=== PATIENT | female | born 1960 | race Caucasian/White ===

== ENCOUNTER 2020-04-27 17:33 | Inpatient (IN) | payer MEDICARE, MEDICAID ==
[~2020-04-27] VITALS: Ht 154.9 cm; Wt 77.8 kg
[2020-04-27 18:39] LABS: BASO % 0.2 % (0.0-2.0); EOS # 0.1 (0.0-0.7); GRAN # 7.2 (1.4-6.5); GRAN % 72.2 % (42.2-75.2); HEMATOCRIT 42.5 % (37.0-47.0); LYMPH # 1.8 (1.2-3.4); LYMPH % 18.1 % (20.0-51.0); MEAN CELL VOLUME 94 fl (80.0-100.0); MEAN CORPUSCULAR HEMOGLOBIN 31 pg (27.0-31.0); MEAN CORPUSCULAR HGB CONC 33 g/dl (33.0-37.0); MEAN PLATELET VOLUME 9.4 fl (7.4-10.4); MONO # 0.8 (0.1-0.6); MONO % 8.2 % (1.7-9.3); PLATELET COUNT 347 K/mm3 (130-400); RED BLOOD COUNT 4.54 M/mm3 (4.10-5.30); REDCELL DISTRIBUTION WIDTH-CV 13.3 % (11.5-14.5)
[2020-04-27 18:44] LABS: INR 0.9 (0.8-3.0); PROTHROMBIN TIME 9.8 SECONDS (9.7-12.8)
[2020-04-27 18:50] LABS: ALANINE AMINOTRANSFERASE 34 U/L (4-34); ALBUMIN 4.3 gm/dL (3.5-5.0); ALKALINE PHOSPHATASE 95 U/L (50-136); ANION GAP 10 mmol/L (7-16); AST,SGOT 211 U/L (15-37); BILIRUBIN,TOTAL 0.5 mg/dL (0.0-1.0); BLOOD UREA NITROGEN 17 mg/dL (7-17); CALCIUM 9.7 mg/dL (8.4-10.2); CARBON DIOXIDE 25 mmol/L (22-30); CHLORIDE 104 mmol/L (98-107); GLUCOSE 134 mg/dL (74-106); LIPASE 108 U/L (23-300); POTASSIUM 3.6 mmol/L (3.4-5.0); SODIUM 138 mmol/L (137-145); TOTAL PROTEIN 7.9 gm/dL (6.4-8.2)
[2020-04-27 18:58] LABS: TRICYCLIC ANTIDEPRESS URINE NEGATIVE
[2020-04-27 19:02] LABS: TROPONIN-I < 0.012 ng/mL (0.000-0.035)
[2020-04-27] MEDS ORDERED: AMBIEN 10MG10 MG PO (22:09)
[2020-04-27] MEDS ORDERED: RANEXA1000 MG PO (22:09)
[2020-04-27] MEDS ORDERED: COREG 6.256.25 MG/TA PO (22:10)
[2020-04-27] MEDS ORDERED: ZANAFLEX CAPSULE4 MG PO (22:10)
[2020-04-27] MEDS ORDERED: PRAVACHOL 40MG40 MG PO (22:10)
[2020-04-27] MEDS ORDERED: CYMBALTA 60MG60 MG PO (22:10)
[2020-04-27] MEDS ORDERED: NEURONTIN300 MG/CAP PO (22:11)
[2020-04-27] MEDS ORDERED: NITROSTAT0.4 MG/TAB SL (22:11)
[2020-04-27] MEDS ORDERED: ANTIVERT 25MG25 MG PO (22:11)
[2020-04-27] MEDS ORDERED: SALONPAS1 EACH TP (22:12)
[2020-04-27] MEDS ORDERED: ASPIRIN 81M81 MG/TA2 PO (22:12)
[2020-04-28] VITALS (20 sets, daily range): BP systolic 94–149; BP diastolic 55–94; PULSE 68–98; TEMP 97.5–98.1
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
--- NOTE | 2020-04-28 09:45 | NUR ---
PT TAKEN DOWN FOR HEART CATH PROCEDURE, PT LABS DRAWN FROM NEW PICC LINE ON R ARM. CONSENT SIGNED ON CHART
--- NOTE | 2020-04-28 10:09 | NUR ---
SEE MERGE DOCUMENTATION FOR MEDICATION ADMINISTRATION AND INTRA/POST PROCEDURE SEDATION ASSESSMENTS.
--- NOTE | 2020-04-28 10:14 | NUR ---
LAB CALLED REPORTING HEMOGLOBIN DROPPING FROM 14 YESTERDAY TO 9.7 TODAY.
--- NOTE | 2020-04-28 11:09 | NUR ---
Time Signal Wirer attempted to meet with the patient. She was out of the room. Will attempt at a later time.
--- NOTE | 2020-04-28 11:20 | NUR ---
PT RETURNED TO FLOOR. PT PUT ON 5.5L OXYGEN, PT HOOKED UP TO VITALS CART. PT REPORTING EXTREME PAIN /. MORPHINE GIVEN.
--- NOTE | 2020-04-28 11:28 | NUR ---
PT COMPLAINING OF LOTS OF PAIN, MORPHING ADMINISTERED. NO OTHER NEEDS AT THIS TIME.
[2020-04-28 12:22] LABS: BASO % 0.3 % (0.0-2.0); EOS # 0.2 (0.0-0.7); EOS % 3.1 % (0-4.0); GRAN # 3.1 (1.4-6.5); GRAN % 53.2 % (42.2-75.2); LYMPH % 34.7 % (20.0-51.0); MEAN CELL VOLUME 94 fl (80.0-100.0); MEAN CORPUSCULAR HGB CONC 33 g/dl (33.0-37.0); MEAN PLATELET VOLUME 9.7 fl (7.4-10.4); MONO # 0.5 (0.1-0.6); MONO % 8.2 % (1.7-9.3); PLATELET COUNT 267 K/mm3 (130-400); RED BLOOD COUNT 3.59 M/mm3 (4.10-5.30); REDCELL DISTRIBUTION WIDTH-CV 13.2 % (11.5-14.5)
[2020-04-28 12:30] LABS: HEMOGLOBIN 11.2 g/dl (12.5-16.0); MEAN CORPUSCULAR HEMOGLOBIN 31 pg (27.0-31.0)
[2020-04-28 12:31] LABS: HEMATOCRIT 33.9 % (37.0-47.0)
[2020-04-28 12:32] LABS: ANION GAP 3 mmol/L (7-16); BLOOD UREA NITROGEN 13 mg/dL (7-17); CALCIUM 8.1 mg/dL (8.4-10.2); CARBON DIOXIDE 28 mmol/L (22-30); CHLORIDE 102 mmol/L (98-107); CHOLESTEROL 183 mg/dL (120-200); CHOLESTEROL RISK RATIO 4.3; GLUCOSE 130 mg/dL (74-106); HDL CHOLESTEROL 42 mg/dL; LDL CHOLESTEROL 114 mg/dL; POTASSIUM 4.1 mmol/L (3.4-5.0); SODIUM 132 mmol/L (137-145); TRIGLYCERIDE 135 mg/dL
[2020-04-28 12:44] LABS: TROPONIN-I < 0.012 ng/mL (0.000-0.035)
--- NOTE | 2020-04-28 12:52 | NUR ---
PT TAKEN DOWN FOR CT VIA BED.
--- NOTE | 2020-04-28 13:14 | NUR ---
PT RETURNED FROM MRI
--- NOTE | 2020-04-28 16:36 | NUR ---
Manager Image met with the patient to complete initial intake. The patient lives in [place] with her boyfriend Sudeep Jaimes. The patient recently moved her from [place]. The patient denies DME use and does receive some assistance from Sudeep for ADLs. The patient does not have a PCP and was agreeable to setting up with [facility]. The patient to receive medications from [facility]. The patient does not have advanced directives in the EMR but was interested in DPOA-HC form. Form provided. The patient would like to apply for Medicaid. The patient will return home at discharge. NELSON contacted Keila Enciso with Finance and she will assist the patient, 04/29 with the application. NELSON informed the patient. NELSON contacted [facility] to set up appointment. Her appointment will be , 05/05 at 11:00 but arrival at 10:30. Will continue to monitor.
--- NOTE | 2020-04-28 17:22 | NUR ---
PT MEDS GIVEN, PT FEMORAL SITE CDI, NO DRAINAGE, PT 6 HOURS OF LAYING FLAT IS NOW OVER. PT HELPED TO BEDSIDE COMMODE. URINE DARK YELLOW. PT COMPLAINING OF HIP AND BACK PAIN WITH AMBULATION. PT PLEASANT. PT IV FLUIDS RUNNING. NO OTHER NEEDS AT THIS TIME.
--- NOTE | 2020-04-28 20:00 | NUR ---
Patient assessed at this time. Alert and oriented x 4, and able to make needs known. Reports pain to head, back, and right hip. Given PRN Tizanidine. Double lumen PICC to RUE. Dressing to area is CDI. Site is without redness, warmth, swelling, and pain. Denies having SOB and dyspnea. Reports occasional cough. LS CTA in upper lobes, diminished in lower lobes. Respirations even and unlabored. HRR. Telemetry in place: sinus. Capillary refill less than 3 seconds. Non-tenting skin turgor. BSAx4. Abdomen soft and non-tender. No edema. Heart cath site to right femoral is CDI. Denies pain and discomfort to site. Resting in bed with call light within reach. High fall risk precautions initiated due to history of syncopal episodes prior to hospitalization. Patient voiced understanding.
--- NOTE | 2020-04-28 22:40 | NUR ---
Patient continued to complain of level 10 headache after receiving PRN Percocet around 2100. Reported that only morphine helped her yesterday. Call placed to [place]. New order for one time Morphine and Benadryl. Given to patient at this time. Voices no further questions, needs, or concerns at this time.
--- NOTE | 2020-04-28 23:51 | NUR ---
Patient resting in bed with eyes closed at this time. No further complaints of pain or discomfort after receiving PRN Morphine.
[2020-04-29] VITALS (527 sets, daily range): BP systolic 64–134; BP diastolic 30–95; PULSE 63–81; TEMP 97.6–98.9; O2SAT 85–100
[2020-04-29 06:38] LABS: BASO % 0.2 % (0.0-2.0); EOS # 0.2 (0.0-0.7); EOS % 3.4 % (0-4.0); GRAN % 53.7 % (42.2-75.2); HEMOGLOBIN 10.1 g/dl (12.5-16.0); LYMPH # 1.8 (1.2-3.4); MEAN CELL VOLUME 97 fl (80.0-100.0); MEAN CORPUSCULAR HEMOGLOBIN 32 pg (27.0-31.0); MEAN CORPUSCULAR HGB CONC 33 g/dl (33.0-37.0); MEAN PLATELET VOLUME 9.9 fl (7.4-10.4); MONO # 0.5 (0.1-0.6); MONO % 9.5 % (1.7-9.3); PLATELET COUNT 260 K/mm3 (130-400); REDCELL DISTRIBUTION WIDTH-CV 13.2 % (11.5-14.5)
--- NOTE | 2020-04-29 06:42 | NUR ---
Patient given PRN Percocet around 0300, then another one around 0515. Continues to have headache at this time. Resting in bed with eyes closed at this time. Call light within reach.
[2020-04-29 06:44] LABS: CREATININE, serum 0.6 (0.52-1.25); POTASSIUM 4.5 mmol/L (3.4-5.0)
--- NOTE | 2020-04-29 11:41 | NUR ---
PT HAD LOW BP. RETAKEN MANUALLY TO GET A SYSTOLIC OF 76. POTHURU AWARE, ORDERED FLUID BOLUS, TROPONIN AND STAT EKG. RESPIRATORY CALLED FOR STAT EKG. EKG PERFORMED AT 1155. BOLUS INFUSING, BP BEING TAKEN Q5MIN. PT BP 64/39 AT 1153. BP 74/37 AT 1158. FLUIDS CONTINUING TO INFUSE. PT REPORTING DIZZINESS AND STATES "I FEEL LIKE IM GONNA PASS OUT. THIS HAPPENS TO ME EVERY TIME IM ABOUT TO DISCHARGE, LAST TIME I WENT TO THE HOSPITAL I HAD TO GO TO THE ICU." PT ALSO REPORTS HEADACHE. PERCOCET HELD DUE TO LOW BP. BP AT 1202 71/38.
--- NOTE | 2020-04-29 12:15 | NUR ---
PT is recommending a walker for the patient. The patient was agreeable to sending the order to [facility]. However, she wanted to apple picking supervisor the walker herself. SW faxed the order and informed Chanelle with [facility] that the patient would apple picking supervisor the walker. Will continue to monitor.
--- NOTE | 2020-04-29 12:24 | NUR ---
PHYSICIAN AWARE OF LOW BP. ORDERED 1000ML BOLUS IN ADDITION TO 500ML , XRAY, EKG. CALLED XRAY. PT APPEARS DROWSY. ALERT WHEN TALKING. ORIENTED X4.
--- NOTE | 2020-04-29 12:34 | NUR ---
TRANSFERRING TO ICU.
[2020-04-29 12:46] LABS: ANION GAP 1 mmol/L (7-16); BLOOD UREA NITROGEN 12 mg/dL (7-17); CALCIUM 6.5 mg/dL (8.4-10.2); CARBON DIOXIDE 26 mmol/L (22-30); CHLORIDE 109 mmol/L (98-107); GLUCOSE 124 mg/dL (74-106); POTASSIUM 3.7 mmol/L (3.4-5.0); SODIUM 136 mmol/L (137-145)
[2020-04-29 12:59] LABS: TROPONIN-I < 0.012 ng/mL (0.000-0.035)
--- NOTE | 2020-04-29 13:05 | NUR ---
Patient arrives to ICU 3 via bed and is transferred to ICU bed and monitors. Patient is A&Ox3, assessment and vitals as charted. Care assumed at this time.
--- NOTE | 2020-04-29 13:25 | NUR ---
Dr. Matson called and notified that levophed gtt will be initiated as per prior orders. Request made for MIVF and granted. Orders as entered CPOE.
[2020-04-29 15:59] LABS: HEMOGLOBIN 10.3 g/dl (12.5-16.0); MEAN CELL VOLUME 96 fl (80.0-100.0); MEAN CORPUSCULAR HEMOGLOBIN 31 pg (27.0-31.0); MEAN CORPUSCULAR HGB CONC 33 g/dl (33.0-37.0); MEAN PLATELET VOLUME 9.5 fl (7.4-10.4); PLATELET COUNT 273 K/mm3 (130-400); RED BLOOD COUNT 3.29 M/mm3 (4.10-5.30); REDCELL DISTRIBUTION WIDTH-CV 13.1 % (11.5-14.5)
[2020-04-29 16:27] LABS: HEMATOCRIT 31.6 % (37.0-47.0)
--- NOTE | 2020-04-29 16:53 | NUR ---
Mobility Developer assisted patient in completing DPOA-HC documents. NELSON and NELSON Barnett provided witness signature. SW provided original and copies to patient then placed copy on patient's chart.
--- NOTE | 2020-04-29 22:45 | NUR ---
Hospitalist at bedside to discuss patient's ongoing concerns regarding her headache. Hospitalist to review chart.
[2020-04-30] VITALS (401 sets, daily range): BP systolic 115–159; BP diastolic 72–97; PULSE 70–76; TEMP 98–98.3; O2SAT 56–100
[2020-04-30 07:20] LABS: BASO % 0.2 % (0.0-2.0); EOS # 0.2 (0.0-0.7); EOS % 3.9 % (0-4.0); GRAN # 2.8 (1.4-6.5); GRAN % 56.2 % (42.2-75.2); LYMPH # 1.6 (1.2-3.4); LYMPH % 31.7 % (20.0-51.0); MEAN CELL VOLUME 95 fl (80.0-100.0); MEAN CORPUSCULAR HEMOGLOBIN 31 pg (27.0-31.0); MEAN CORPUSCULAR HGB CONC 33 g/dl (33.0-37.0); MEAN PLATELET VOLUME 9.6 fl (7.4-10.4); MONO # 0.4 (0.1-0.6); MONO % 7.6 % (1.7-9.3); PLATELET COUNT 250 K/mm3 (130-400); RED BLOOD COUNT 3.22 M/mm3 (4.10-5.30); REDCELL DISTRIBUTION WIDTH-CV 12.9 % (11.5-14.5)
[2020-04-30 07:21] LABS: HEMATOCRIT 30.7 % (37.0-47.0)
[2020-04-30 07:31] LABS: CALCIUM 8.9 mg/dL (8.4-10.2); CREATININE, serum 0.63 (0.52-1.25); POTASSIUM 4.1 mmol/L (3.4-5.0)
[2020-04-30 08:01] LABS: TSH w REFLEX 6.14 uIU/mL (0.465-4.680)
[2020-04-30 08:22] LABS: COLLECTION METHOD CLEAN CATCH
[2020-04-30 08:34] LABS: PH 5 (5-8); SQUAMOUS EPITHELIAL 0-2 /hpf; URINE APPEARANCE Clear; URINE BACTERIA None Seen /hpf; URINE BILIRUBIN Negative (NEGATIVE); URINE BLOOD Negative (NEGATIVE); URINE COLOR Yellow; URINE GLUCOSE Negative (NEGATIVE); URINE KETONE Negative (NEGATIVE); URINE LEUKOCYTE ESTERASE Negative (NEGATIVE); URINE NITRATE Negative (NEGATIVE); URINE PROTEIN(semi-quant) Negative (NEGATIVE); URINE RBC 0-2 /hpf; URINE UROBILINOGEN Negative (NEGATIVE); URINE WBC 0-2 /hpf
--- NOTE | 2020-04-30 12:27 | NUR ---
Chaplain dawkins and offered support with patient.
[2020-04-30] MEDS ORDERED: TOPROL XL 25MG25 MG PO (13:50)
--- NOTE | 2020-04-30 15:00 | NUR ---
Discharge education provided and PICC line removed as per orders.
[2020-04-30] MEDS ORDERED: SYNTHROID0.075 MG/T PO (15:09)
--- NOTE | 2020-04-30 15:27 | NUR ---
Patient discharged via WC to care of significant other.
== END 2020-04-30 15:27 | disposition home or self-care (01) | DRG 287 ==
LOC: COL.ER 17:33 → MEDICAL 18:23 → ICU 04-29 12:58
PROVIDERS: Emergency Medicine; Internal Medicine Sleep Medicine; Student in an Organized Health Care Education/Training Program; ADMIT Hospitalist
PROC: 4A023N7 Measurement of Cardiac Sampling and Pressure, Left Heart, Percutaneous Approach (ICD-10-PCS; principal; 2020-04-28)
PROC: B2111ZZ Fluoroscopy of Multiple Coronary Arteries using Low Osmolar Contrast (ICD-10-PCS; 2020-04-28)
DX: R55 Syncope and collapse (principal); I95.2 Hypotension due to drugs; T44.7X5A Adverse effect of beta-adrenoreceptor antagonists, initial encounter; I25.10 Atherosclerotic heart disease of native coronary artery without angina pectoris; G89.29 Other chronic pain; M19.90 Unspecified osteoarthritis, unspecified site; K21.9 Gastro-esophageal reflux disease without esophagitis; F32.9 Major depressive disorder, single episode, unspecified; G62.9 Polyneuropathy, unspecified; J42 Unspecified chronic bronchitis; G43.909 Migraine, unspecified, not intractable, without status migrainosus; F19.10 Other psychoactive substance abuse, uncomplicated; E03.9 Hypothyroidism, unspecified; Z95.5 Presence of coronary angioplasty implant and graft; Z85.3 Personal history of malignant neoplasm of breast; Z88.0 Allergy status to penicillin; Z88.6 Allergy status to analgesic agent; Z88.2 Allergy status to sulfonamides
CPT/HCPCS: 99223-AI; 99233-AI; 99239; C1751; G0378; J1200; J1644; J1650; J2250; J2270; J2765; J3010; J7030; J7040; J7060; Q9967

== ENCOUNTER 2020-05-13 08:54 | Emergency (ER) | payer MEDICARE ==
[~2020-05-13] VITALS: Ht 154.9 cm; Wt 75.5 kg
[~2020-05-13 08:54] MED LIST: AMBIEN 10MG10 MG PO; ANTIVERT 25MG25 MG PO; ASPIRIN 81M81 MG/TA2 PO; COREG 6.256.25 MG/TA PO; CYMBALTA 60MG60 MG PO; NEURONTIN300 MG/CAP PO; NITROSTAT0.4 MG/TAB SL; PRAVACHOL 40MG40 MG PO; RANEXA1000 MG PO; SALONPAS1 EACH TP; SYNTHROID0.075 MG/T PO; TOPROL XL 25MG25 MG PO; ZANAFLEX CAPSULE4 MG PO
[2020-05-13 08:57] VITALS: TEMP 98.7
[2020-05-13] MEDS ORDERED: LIDODERM 5% PATC1 EA TP (09:13)
[2020-05-13 10:10] LABS: BASO % 0.4 % (0.0-2.0); EOS # 0.3 (0.0-0.7); GRAN # 4.7 (1.4-6.5); GRAN % 57.9 % (42.2-75.2); HEMATOCRIT 38.1 % (37.0-47.0); HEMOGLOBIN 12.8 g/dl (12.5-16.0); LYMPH # 2.5 (1.2-3.4); LYMPH % 30.9 % (20.0-51.0); MEAN CELL VOLUME 94 fl (80.0-100.0); MEAN CORPUSCULAR HEMOGLOBIN 32 pg (27.0-31.0); MEAN CORPUSCULAR HGB CONC 34 g/dl (33.0-37.0); MEAN PLATELET VOLUME 9.3 fl (7.4-10.4); MONO # 0.5 (0.1-0.6); MONO % 6.6 % (1.7-9.3); PLATELET COUNT 389 K/mm3 (130-400); RED BLOOD COUNT 4.06 M/mm3 (4.10-5.30); REDCELL DISTRIBUTION WIDTH-CV 12.9 % (11.5-14.5)
[2020-05-13 10:16] LABS: INR 0.9 (0.8-3.0); PROTHROMBIN TIME 9.5 SECONDS (9.7-12.8)
[2020-05-13 10:20] LABS: ALANINE AMINOTRANSFERASE 15 U/L (4-34); ALBUMIN 4.4 gm/dL (3.5-5.0); ALKALINE PHOSPHATASE 86 U/L (50-136); ANION GAP 8 mmol/L (7-16); AST,SGOT 22 U/L (15-37); BILIRUBIN,TOTAL 0.4 mg/dL (0.0-1.0); BLOOD UREA NITROGEN 9 mg/dL (7-17); CALCIUM 9.5 mg/dL (8.4-10.2); CARBON DIOXIDE 26 mmol/L (22-30); CHLORIDE 104 mmol/L (98-107); CREATININE, serum 0.56 (0.52-1.25); GLUCOSE 132 mg/dL (74-106); SODIUM 138 mmol/L (137-145)
[2020-05-13 10:32] LABS: TROPONIN-I < 0.012 ng/mL (0.000-0.035)
[2020-05-13 14:41] VITALS: BP 132/86; PULSE 82
== END 2020-05-13 14:45 | disposition home or self-care (01) ==
LOC: COL.ER 08:54
PROVIDERS: Physician Assistant
DX: I20.9 Angina pectoris, unspecified (principal); I10 Essential (primary) hypertension; E78.5 Hyperlipidemia, unspecified; G43.909 Migraine, unspecified, not intractable, without status migrainosus; G62.9 Polyneuropathy, unspecified; Z90.89 Acquired absence of other organs; Z95.9 Presence of cardiac and vascular implant and graft, unspecified; Z90.710 Acquired absence of both cervix and uterus; Z79.82 Long term (current) use of aspirin
CPT/HCPCS: J2270; J2405; J7030

== ENCOUNTER → 2020-07-13 | Outpatient (CLI) | payer MEDICARE ==
[~2020-07-13] MED LIST changes: +ALBUTEROL0.83 MG/ML IH; +LIDODERM 5% PATC1 EA TP; +NORCO 325 MG-7.1 TAB PO; +PRAVACHOL10 MG PO; +PROAIR RES117 MCG/Ac; +ROXICODONE 55 MG/TAB PO; +SENEXON-S 50-81 EACH PO; +VISTARIL 2525 MG/CAP PO; +VOLTAREN GEL 1%1 TU; +XARELTO10 MG PO
[2020-07-19 14:08] VITALS: BP 123/74; PULSE 94; TEMP 98
== END ==
LOC: COL.LAB 08:00 → JCC 07-19 07:30 → EDSTATUS 07-19 07:30 → JCC 07-19 09:30
DX: Z96.641 Presence of right artificial hip joint (principal); Z20.828 Contact with and (suspected) exposure to other viral communicable diseases
CPT/HCPCS: C1776; J3010

== ENCOUNTER → 2020-07-15 | Outpatient (CLI) | payer MEDICARE, MEDICAID | LOC: COL.RAD 13:02 | DX: Z01.818 Encounter for other preprocedural examination (principal); J44.9 Chronic obstructive pulmonary disease, unspecified; G47.9 Sleep disorder, unspecified ==

== ENCOUNTER 2020-07-18 13:58 | Inpatient (IN) | payer MEDICARE, MEDICAID ==
[~2020-07-18] VITALS: Ht 154.9 cm; Wt 85.6 kg
[~2020-07-18 13:58] MED LIST changes: -ALBUTEROL0.83 MG/ML IH; -NORCO 325 MG-7.1 TAB PO; -PRAVACHOL10 MG PO; -PROAIR RES117 MCG/Ac; -ROXICODONE 55 MG/TAB PO; -SENEXON-S 50-81 EACH PO; -VISTARIL 2525 MG/CAP PO; -VOLTAREN GEL 1%1 TU; -XARELTO10 MG PO
[2020-07-18 15:13] LABS: BASO % 0.3 % (0.0-2.0); EOS # 0.1 (0.0-0.7); EOS % 1.5 % (0-4.0); GRAN # 6.1 (1.4-6.5); GRAN % 76.5 % (42.2-75.2); HEMATOCRIT 39.2 % (37.0-47.0); HEMOGLOBIN 12.9 g/dl (12.5-16.0); LYMPH # 1.3 (1.2-3.4); LYMPH % 16.8 % (20.0-51.0); MEAN CELL VOLUME 92 fl (80.0-100.0); MEAN CORPUSCULAR HEMOGLOBIN 30 pg (27.0-31.0); MEAN CORPUSCULAR HGB CONC 33 g/dl (33.0-37.0); MEAN PLATELET VOLUME 9.3 fl (7.4-10.4); MONO # 0.4 (0.1-0.6); MONO % 4.8 % (1.7-9.3); PLATELET COUNT 351 K/mm3 (130-400); RED BLOOD COUNT 4.27 M/mm3 (4.10-5.30); REDCELL DISTRIBUTION WIDTH-CV 12.5 % (11.5-14.5)
[2020-07-18 15:16] LABS: CALCIUM 9.2 mg/dL (8.4-10.2); CREATININE, serum 0.61 (0.52-1.25); POTASSIUM 4.2 mmol/L (3.4-5.0)
[2020-07-18] MEDS ORDERED: VOLTAREN GEL 1%1 TU (15:21)
[2020-07-18] MEDS ORDERED: PROAIR RES117 MCG/Ac (15:22)
[2020-07-18] MEDS ORDERED: PRAVACHOL10 MG PO (15:22)
[2020-07-18] MEDS ORDERED: VISTARIL 2525 MG/CAP PO (15:27)
[2020-07-18 17:13] VITALS: BP 122/89; PULSE 91; TEMP 98.8
--- NOTE | 2020-07-18 18:30 | NUR ---
Notified anesthesia that patient is here a day early. Patient arrived to floor around 1715. Dilauded given for pain. Patient denies nausea. Went through her allergies with her. Also updated her home medications. Did not get her admission assessment completed. Patient resting comfortably after dilauded. No other changes at this time. Call light within reach.
[2020-07-18 19:24] VITALS: BP 127/74; PULSE 93; TEMP 98.6
[2020-07-18] MEDS ORDERED: ALBUTEROL0.83 MG/ML IH (22:12)
[2020-07-18] MEDS ORDERED: TOPROL XL 25MG25 MG PO (22:13)
[2020-07-18 23:56] VITALS: BP 122/70; PULSE 86; TEMP 98.3
[2020-07-19] VITALS (16 sets, daily range): BP systolic 88–124; BP diastolic 48–74; PULSE 81–107; TEMP 97.9–98.4
--- NOTE | 2020-07-19 07:38 | NUR ---
[facility] NOTIFIED THAT PT IS AVAILABLE FOR PICC LINE PLACEMENT.
--- NOTE | 2020-07-19 13:39 | NUR ---
PATIENT TO ROOM 329 PER BED WITH REPORT FROM [facility] @5650. PT IS A/OX3. DRESSING TO RIGHT HIP CDI WITH OCCLUSIVE FOAM TAPE OVER INCISION. SCDS AND TEDS BILATERALLY. IV /PICC TO RIGHT UPPER ARM.
--- NOTE | 2020-07-19 15:21 | NUR ---
NELSON met with the patient to discuss discharge plan. The patient lives in [place] with her boyfriend, Sudeep Jaimes (ph#[phone]). She reports independence with ADLs and has a walker. She states that she is suppose to be getting a wheelchair from [facility]. She states that Dr. Sanchez ordered her this. NELSON contacted Chanelle at [facility] to follow up about this. Chanelle states that they do have the order, but have been waiting to get more wheelchairs in stock. They do not have any in stock right now and are unsure when they will be getting more. The patient's PCP is Judy Wright APRN and she receives her medications at [facility]. She reports no difficulties obtaining her meds. The patient's DPOA-HC is in EMR and it designates her boyfriend, Sudeep. The patient had a planned right total hip scheduled for today. Last night the patient had a fall in the shower and was brought in by the ambulance. NELSON discussed post-acute rehab with the patient. The patient reports that she would like to return home. She states that if rehab is recommended by Dr. Sanchez and PT, then she would consider it. She states that her boyfriend is at home at all times. NELSON attempted to contact and review d/c plan with her boyfriend. SW left him a voicemail. SW awaiting PT/OT recommendations.
--- NOTE | 2020-07-19 17:57 | NUR ---
PT VOIDED AND RETURNED TO BED. FOUNDRY EQUIPMENT MECHANIC CONTROLLING PAIN AT THIS TIME.
--- NOTE | 2020-07-19 20:00 | NUR ---
Walked to restroom and returned to bed. Assessment complete. Lungs clear. Heart sounds normal. Bowels active x4. Pulses present throughout. No edema noted-SDC and TEDs in place. PICC to right upper infusing SALVAGE MACHINE OPERATOR as ordered. Denies pain at this time. Right hip bulky dressing CDI. Denies needs. Call light in reach.
--- NOTE | 2020-07-19 22:15 | NUR ---
Resting in bed. Denies needs. Call light in reach.
[2020-07-20 00:08] VITALS: BP 113/60
--- NOTE | 2020-07-20 00:09 | NUR ---
SKINNER PELTS pump refilled. Patient reports 8/10 pain. Reports phlegm ni trouble and irritation. Given ice pop. Will monitor.
--- NOTE | 2020-07-20 03:58 | NUR ---
Up to restroom and returned to bed. Reports pain. Re-educated regarding QUITLINE COUNSELOR use. Will monitor. Call light in reach.
[2020-07-20 03:59] VITALS: BP 118/56; PULSE 99; TEMP 98.2
[2020-07-20 05:09] LABS: HEMOGLOBIN 9.2 g/dl (12.5-16.0)
[2020-07-20 05:10] LABS: HEMATOCRIT 28.3 % (37.0-47.0)
--- NOTE | 2020-07-20 05:26 | NUR ---
Patient had pain throughout night. Re-educated regarding TIRE MOLDER as needed. Reported throat irritation throughout night. Several different methods attempted to help with relief of irritation. Reporting nausea this AM. Will provide PRN zofran. Otherwise uneventful night. Call light in reach.
--- NOTE | 2020-07-20 06:51 | NUR ---
Report given to RAINE Steele
--- NOTE | 2020-07-20 07:00 | NUR ---
ORTHO ROUNDING, SEE ORDERS.
[2020-07-20 07:35] VITALS: BP 109/62; PULSE 98; TEMP 98
--- NOTE | 2020-07-20 07:35 | NUR ---
Shift assessment complete. Picc upper right arm CDI, O2 and ECO2 tolerated well, TRUMAN and SED on bilateral legs with no noted edema. Pt ate her breakfast w/o complications. Pt ambulates 1:1 with limited assistance. Bulky gauze dressing on right hip CDI. Pt reports consistant use of the SUPERVISOR FINE GRADING "without help" stating her pain was at a 10/10.
--- NOTE | 2020-07-20 08:00 | NUR ---
PATIENT IS A&O. VSS. RATES PAIN IN RLE AT 4-5 ON PAIN SCALE WITH ACTIVITY. MORPHINE PRODUCT SUPPORT REPRESENTATIVE DC'D PER ORDERS. GAVE PRN ROXICODONE, TWO TABS BEFORE AM THERAPY. STUDENT NURSES TO CHANGE POST OP RTH DRESSING TO AQUACEL. TEDS & SCD'S TO BLE. POSITIVE PEDAL PULSES TO BLE. PATIENT EAT/DRINK/VOID SUFFICENT AMOUNTS. NO C/O N/V. RIGHT UPPER ARM PICC LINE TO INT. HEAD TO TOE ASSESSMENT COMPLETE. BREAKFAST TRAY AT BEDSIDE. AM MEDS GIVEN. STUDENT NURSE WORKING WITH PATIENT TODAY, SEE STUDENT NOTES.
--- NOTE | 2020-07-20 09:50 | NUR ---
Dressing change of the right hip from a bulky gauze dressing to a 12in Auquacell .The removed gauze had minimal drainage mainly serous fluid. 33 anali were noted at incision. Incision was CDI warm to touch no redness or drainage. Pt tolerated dressing change well.
[2020-07-20 10:45] VITALS: BP 106/63; PULSE 86; TEMP 97.5
--- NOTE | 2020-07-20 14:55 | NUR ---
REPORTED OFF TO RAINE XIONG.
--- NOTE | 2020-07-20 15:15 | NUR ---
Report from RAINE Houston
--- NOTE | 2020-07-20 17:24 | NUR ---
Patient sitting up in bed eatting dinner and watching TV. A&Ox4. VSS. IV CDI. Right hip dressing CDI, leg elevated on pillow. Rating pain in right hip 06/16. Pain medication given as requested. Patient assisted SB with gait belt and walker to the bathroom. No further needs expressed from the patient. Call light within reach
[2020-07-20 19:12] VITALS: BP 108/57; PULSE 86; TEMP 98.2
--- NOTE | 2020-07-20 21:20 | NUR ---
Pt. sitting up in bed at this time. Pt. is A&OX3, assessment complete. PICC to rt. upper arm patent. Dressing to rt. hip CDI. Pt. reports pain at an 8 on pain scale, will give pain meds per orders. Pt. denies further needs, call light within reach.
[2020-07-21] VITALS (7 sets, daily range): BP systolic 91–123; BP diastolic 45–75; PULSE 85–108; TEMP 97.7–99.4
[2020-07-21 04:47] LABS: HEMATOCRIT 25.5 % (37.0-47.0); HEMOGLOBIN 8.4 g/dl (12.5-16.0)
--- NOTE | 2020-07-21 08:00 | NUR ---
PATIENT IS ORIENTED BUT DROWSY. NOTED LOW B/P OF 91/47, ALL OTHER VSS WITH TELE INPLACE. PATIENT ALWAYS RATES PAIN HIGH IN RLE WHEN ASKED. PATIENT HAS HX OF CHRONIC PAIN WITH ALF NARCOTIC USE. PATIENT HAS AN INPLANTED PAIN PUMP AND STIMULATOR. PATIENT REPORTS A HIGH TOLERANCE TO PAIN MEDS. GAVE PRN ROXICODONE, TWO TABS FOR PAIN. PATIENT ALSO C/O ITCHING ASSOCIATED WITH NARCOTICS. GAVE PRN BENADRYL. MONITORED FOR SEDATION, PATIENT DID NOT BECOME DROWSY. RIGHT HIP DRESSING IS CD&I WITH ICE PACK INPLACE. TEDS TO BLE. SCD'S CURRENTLY OFF. POSITIVE PEDAL PULSES TO BLE. PT/OT CONSULTED. PATIENT IS 1 ASSIST BUT VERY SLOW MOVING. PATIENT NEEDS ENCOURAGMENT TO DO ADL'S. NO C/O N/V. RIGHT UPPER ARM PICC TO INT. EAT/DRINK/VOIDING SUFFICENT AMOUNTS. HEAD TO TOE ASSESSMENT COMPLETE. AM MEDS GIVEN. NO OTHER NEEDS AT THIS TIME. CALL LIGHT IN REACH.
--- NOTE | 2020-07-21 11:13 | NUR ---
First visit from the dietist. No needs right now.
--- NOTE | 2020-07-21 12:35 | NUR ---
PT was recommending home. The patient is having more pain today and difficulty ambulating. SW met with the patient to review d/c plan. The patient states that she lives on the second floor of an apartment complex and will have 12-14 stairs to get up. She states that she is concerned she will not be able to get up the stairs. SW discussed post-acute rehab. The patient reports that she would be interested in post-acute rehab and chose 1) [facility]. She did not have a second preference and was agreeable for SW to send referrals to others facilities. NELSON consulted [facility] Director, Joy. Joy reports that they do not have a bed available at this time. NELSON contacted and faxed a referral to [facility], and [facility]. SW awaiting their screens.
--- NOTE | 2020-07-21 16:00 | NUR ---
PATIENT C/O SEVERE PAIN IN RLE. PATIENT REPORTS EVEN AFTER ORAL PAIN PILLS IS STILL SEVERE AFTER PT. GAVE PRN IV MORPHINE PER ORDERS.
--- NOTE | 2020-07-21 16:22 | NUR ---
Kym, at [facility], reports that they are able to accept the patient; as long as a pain management plan is in place for the patient. SW to notify the patient's RN and update the patient.
--- NOTE | 2020-07-21 16:33 | NUR ---
NELSON contacted and updated the patient's boyfriend/DPOA-HC, Sudeep. Sudeep was agreeable to the plan.
--- NOTE | 2020-07-21 19:00 | NUR ---
Received report from RAINE Houston. Pt was given pain medication at bedside report. Pt has her call light within reach.
[2020-07-22 03:16] VITALS: BP 119/55; PULSE 96; TEMP 99.6
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
[2020-07-22] MEDS ORDERED: XARELTO10 MG PO (06:50)
[2020-07-22] MEDS ORDERED: SENEXON-S 50-81 EACH PO (06:51)
[2020-07-22] MEDS ORDERED: ROXICODONE 55 MG/TAB PO (06:53)
[2020-07-22] MEDS ORDERED: NORCO 325 MG-7.1 TAB PO (07:04)
[2020-07-22 07:29] VITALS: BP 96/56; PULSE 101; TEMP 98.6
[2020-07-22 10:34] VITALS: BP 96/56; PULSE 101; TEMP 98.6
--- NOTE | 2020-07-22 11:00 | NUR ---
Health Physicist was notified that patient is ready for discharge today. NELSON contacted Lloyd at [facility] and faxed clinical updates. Lloyd reviewed updates, including negative COVID results and advised they can accept today. NELSON faxed discharge orders and set transport time for 1100. NELSON met with patient who is agreeable to discharge to [facility] and to transport time. NELSON attempted to contact her significant other, Sudeep and left a message. NELSON notified [facility], [facility], and [facility] that patient's first preference accepted. No additional needs at this time.
--- NOTE | 2020-07-22 11:43 | NUR ---
Report given to recieving facility. Transportation arrived and transferred patient to facility wheel chair. Patient escorted to facility transport.
== END 2020-07-22 11:48 | DRG 470 ==
LOC: COL.ER 13:58 → SURG 16:34 → COL.ER 16:34 → SURG 07-19 10:54 → JCC 07-19 14:21
PROVIDERS: Emergency Medicine; ADMIT Orthopaedic Surgery
PROC: 0SR90JZ Replacement of Right Hip Joint with Synthetic Substitute, Open Approach (ICD-10-PCS; principal; 2020-07-19)
DX: M16.11 Unilateral primary osteoarthritis, right hip (principal); G89.29 Other chronic pain; M54.9 Dorsalgia, unspecified
CPT/HCPCS: A9284; C1751; J1100; J1170; J1200; J1885; J2250; J2270; J2405; J2704; J2795; J3010; J7042; J7120

== ENCOUNTER 2020-12-15 14:38 | Outpatient (RCR) | payer MEDICARE, MEDICAID ==
[~2020-12-15 14:38] MED LIST changes: +ALBUTEROL0.83 MG/ML IH; +NORCO 325 MG-7.1 TAB PO; +PRAVACHOL10 MG PO; +PROAIR RES117 MCG/Ac; +ROXICODONE 55 MG/TAB PO; +SENEXON-S 50-81 EACH PO; +VISTARIL 2525 MG/CAP PO; +VOLTAREN GEL 1%1 TU; +XARELTO10 MG PO
== END 2021-02-17 11:00 | disposition home or self-care (01) ==
LOC: WSPT 14:38
DX: G89.29 Other chronic pain (principal)

== ENCOUNTER → 2021-03-31 | Outpatient (CLI) | payer MEDICARE, MEDICAID ==
[~2021-03-31] MED LIST changes: +ALBUTEROL1.25 MG/3 IH; +AMITRIPTYLINE H25 M1 PO; +ASPIRIN E.C. 8181 MG PO; +BENADRYL25 M2 PO; +BREZTRI AEROS10.7 GM IH; +FLEXERIL 1010 MG/TAB PO; +FLONASEALLERGY NS; +IMODIUM 2MG CAPS2 MG PO; +PROAIR HFA0.09 MG/AC IH; +PROBIOTIC DIGE1 EACH PO; +SEROQUEL 2525 MG/TAB PO; +ULTRAM 50MG TAB50 MG PO
== END ==
LOC: COL.RAD 03-30 11:00
DX: M54.5 Low back pain (principal); Z98.1 Arthrodesis status; Z96.82 Presence of neurostimulator

== ENCOUNTER 2021-04-21 19:56 | Emergency (ER) | payer MEDICARE, MEDICAID ==
[~2021-04-21] VITALS: Ht 154.9 cm; Wt 75.0 kg
[~2021-04-21 19:56] MED LIST changes: -ALBUTEROL1.25 MG/3 IH; -AMITRIPTYLINE H25 M1 PO; -ASPIRIN E.C. 8181 MG PO; -BENADRYL25 M2 PO; -BREZTRI AEROS10.7 GM IH; -FLEXERIL 1010 MG/TAB PO; -FLONASEALLERGY NS; -IMODIUM 2MG CAPS2 MG PO; -PROAIR HFA0.09 MG/AC IH; -PROBIOTIC DIGE1 EACH PO; -SEROQUEL 2525 MG/TAB PO; -ULTRAM 50MG TAB50 MG PO
[2021-04-21 20:01] VITALS: TEMP 97.7
[2021-04-21] MEDS ORDERED: FLEXERIL 1010 MG/TAB PO (21:26)
[2021-04-21 21:40] VITALS: BP 132/70; PULSE 62
== END 2021-04-21 21:40 | disposition home or self-care (01) ==
LOC: COL.ER 19:56
DX: S09.90XA Unspecified injury of head, initial encounter (principal); S13.9XXA Sprain of joints and ligaments of unspecified parts of neck, initial encounter; S30.0XXA Contusion of lower back and pelvis, initial encounter; I25.10 Atherosclerotic heart disease of native coronary artery without angina pectoris; I10 Essential (primary) hypertension; Z98.890 Other specified postprocedural states; Z88.5 Allergy status to narcotic agent; Z79.82 Long term (current) use of aspirin; Z79.01 Long term (current) use of anticoagulants; Z79.899 Other long term (current) drug therapy; W08.XXXA Fall from other furniture, initial encounter
CPT/HCPCS: J2270; J2360

== ENCOUNTER 2021-06-28 07:54 | Outpatient (CLI) | payer MEDICARE, MEDICAID ==
[~2021-06-28] VITALS: Ht 157.5 cm; Wt 87.8 kg
[~2021-06-28 07:54] MED LIST changes: +FLEXERIL 1010 MG/TAB PO
[2021-06-28] MEDS ORDERED: ULTRAM 50MG TAB50 MG PO (08:26)
[2021-06-28] MEDS ORDERED: PROBIOTIC DIGE1 EACH PO (08:30)
[2021-06-28] MEDS ORDERED: NITROSTAT0.4 MG/TAB SL (08:31)
[2021-06-28] MEDS ORDERED: PRAVACHOL 40MG40 MG PO (08:31)
[2021-06-28] MEDS ORDERED: PROAIR HFA0.09 MG/AC IH (08:32)
[2021-06-28] MEDS ORDERED: BREZTRI AEROS10.7 GM IH (08:32)
[2021-06-28] MEDS ORDERED: ALBUTEROL1.25 MG/3 IH (08:33)
[2021-06-28] MEDS ORDERED: BENADRYL25 M2 PO (08:34)
[2021-06-28] MEDS ORDERED: IMODIUM 2MG CAPS2 MG PO (08:34)
[2021-06-28] MEDS ORDERED: FLONASEALLERGY NS (08:35)
[2021-06-28] MEDS ORDERED: ASPIRIN E.C. 8181 MG PO (08:35)
[2021-06-28] MEDS ORDERED: AMITRIPTYLINE H25 M1 PO (08:37)
[2021-06-28] MEDS ORDERED: TOPROL XL 25MG25 MG PO (08:38)
[2021-06-28] MEDS ORDERED: FLEXERIL 1010 MG/TAB PO (08:38)
[2021-06-28] MEDS ORDERED: AMBIEN 10MG10 MG PO (08:39)
[2021-06-28] MEDS ORDERED: CYMBALTA 60MG60 MG PO (08:40)
[2021-06-28] MEDS ORDERED: SEROQUEL 2525 MG/TAB PO (08:40)
[2021-06-28 08:41] VITALS: BP 136/85; PULSE 102; TEMP 98.6
[2021-06-28 09:50] VITALS: BP 141/68; PULSE 93
[2021-06-28 10:15] VITALS: BP 137/79; PULSE 55
--- NOTE | 2021-06-28 10:40 | NUR ---
Discharge instructions given to pt.pt verbalizes understanding.Pt escorted out via wheelchair by this nurse.
== END 2021-06-28 10:49 ==
LOC: COL.RAD 07:54
DX: M48.061 Spinal stenosis, lumbar region without neurogenic claudication (principal); Z98.1 Arthrodesis status
CPT/HCPCS: Q9965

== ENCOUNTER 2021-10-12 14:55 | Emergency (ER) | payer MEDICARE, MEDICAID ==
[~2021-10-12] VITALS: Ht 157.5 cm; Wt 80.5 kg
[~2021-10-12 14:55] MED LIST changes: +ALBUTEROL1.25 MG/3 IH; +AMITRIPTYLINE H25 M1 PO; +ASPIRIN E.C. 8181 MG PO; +BENADRYL25 M2 PO; +BREZTRI AEROS10.7 GM IH; +FLONASEALLERGY NS; +IMODIUM 2MG CAPS2 MG PO; +PROAIR HFA0.09 MG/AC IH; +PROBIOTIC DIGE1 EACH PO; +SEROQUEL 2525 MG/TAB PO; +ULTRAM 50MG TAB50 MG PO
[2021-10-12 16:16] LABS: BASO % 0.6 % (0.0-2.0); EOS # 0.1 K/mm3 (0.0-0.7); EOS % 1.9 % (0.0-4.0); GRAN # 3.7 K/mm3 (1.4-6.5); GRAN % 69.8 % (42.2-75.2); HEMATOCRIT 38.4 % (37.0-47.0); HEMOGLOBIN 12.9 g/dl (12.5-16.0); LYMPH # 1.1 K/mm3 (1.2-3.4); LYMPH % 20.5 % (20.0-51.0); MEAN CELL VOLUME 88 fl (80.0-100.0); MEAN CORPUSCULAR HEMOGLOBIN 30 pg (27-31); MEAN CORPUSCULAR HGB CONC 34 g/dl (33.0-37.0); MEAN PLATELET VOLUME 9.7 fl (7.4-10.4); MONO # 0.4 K/mm3 (0.1-0.6); PLATELET COUNT 299 K/mm3 (130-400); RED BLOOD COUNT 4.36 M/mm3 (4.10-5.30)
[2021-10-12 16:28] LABS: ALANINE AMINOTRANSFERASE 12 U/L (0-55); ALBUMIN 3.4 gm/dL (3.4-4.8); ALKALINE PHOSPHATASE 69 U/L (40-150); ANION GAP 12 mmol/L (7-16); AST,SGOT 24 U/L (5-34); BILIRUBIN,TOTAL 0.3 mg/dL (0.2-1.2); BLOOD UREA NITROGEN 8 mg/dL (10-20); CALCIUM 8.7 mg/dL (8.4-10.2); CARBON DIOXIDE 23 mmol/L (23-31); CHLORIDE 106 mmol/L (98-107); CREATININE, serum 0.75 mg/dL (0.57-1.11); GLUCOSE 156 mg/dL (70-99); POTASSIUM 4.2 mmol/L (3.5-4.5); SODIUM 141 mmol/L (136-145)
[2021-10-12 16:34] LABS: TROPONIN-I < 0.010 ng/mL (0.00-0.033)
[2021-10-12 17:35] VITALS: BP 144/68; PULSE 69; TEMP 98.7
== END 2021-10-12 17:35 | disposition home or self-care (01) ==
LOC: COL.ER 14:55
PROVIDERS: Student in an Organized Health Care Education/Training Program
DX: R05.9 Cough, unspecified (principal); F43.10 Post-traumatic stress disorder, unspecified; Z20.822 Contact with and (suspected) exposure to COVID-19; Z79.899 Other long term (current) drug therapy

== ENCOUNTER 2021-11-19 17:19 | Emergency (ER) | payer MEDICARE, MEDICAID ==
[~2021-11-19] VITALS: Ht 157.5 cm; Wt 78.6 kg
[2021-11-19 17:19] VITALS: TEMP 98.6
[2021-11-19] MEDS ORDERED: FLEXERIL 1010 MG/TAB PO (18:23)
[2021-11-19 18:48] VITALS: BP 114/68; PULSE 82
== END 2021-11-19 18:48 | disposition home or self-care (01) ==
LOC: COL.ER 17:19
DX: S20.229A Contusion of unspecified back wall of thorax, initial encounter (principal); I25.10 Atherosclerotic heart disease of native coronary artery without angina pectoris; I10 Essential (primary) hypertension; E78.5 Hyperlipidemia, unspecified; Z88.6 Allergy status to analgesic agent; Z79.899 Other long term (current) drug therapy; Z79.82 Long term (current) use of aspirin; W08.XXXA Fall from other furniture, initial encounter; W22.8XXA Striking against or struck by other objects, initial encounter
CPT/HCPCS: J3010

== ENCOUNTER → 2021-12-20 | Emergency (ER) | payer MEDICARE, MEDICAID ==
[~2021-12-20] VITALS: Ht 157.5 cm; Wt 81.4 kg
[2021-12-20 14:10] VITALS: BP 126/81; PULSE 97; TEMP 98.5
== END ==
LOC: COL.ER 14:08
DX: M54.50 Low back pain, unspecified (principal); G89.29 Other chronic pain

== ENCOUNTER → 2022-03-07 | Emergency (ER) | payer MEDICARE, MEDICAID ==
[~2022-03-07] VITALS: Ht 157.5 cm; Wt 84.1 kg
[2022-03-07 17:57] VITALS: BP 153/97; PULSE 110; TEMP 98.9
[2022-03-07 18:23] LABS: BASO % 0.4 % (0.0-2.0); EOS # 0.2 K/mm3 (0.0-0.7); EOS % 2.7 % (0.0-4.0); GRAN # 4.4 K/mm3 (1.4-6.5); HEMATOCRIT 42.7 % (37.0-47.0); HEMOGLOBIN 14.3 g/dl (12.5-16.0); LYMPH # 1.9 K/mm3 (1.2-3.4); LYMPH % 26.6 % (20.0-51.0); MEAN CELL VOLUME 88 fl (80.0-100.0); MEAN CORPUSCULAR HEMOGLOBIN 30 pg (27-31); MEAN CORPUSCULAR HGB CONC 34 g/dl (33.0-37.0); MEAN PLATELET VOLUME 9.6 fl (7.4-10.4); MONO # 0.5 K/mm3 (0.1-0.6); MONO % 7.2 % (1.7-9.3); PLATELET COUNT 387 K/mm3 (130-400); RED BLOOD COUNT 4.85 M/mm3 (4.10-5.30); REDCELL DISTRIBUTION WIDTH-CV 12.8 % (11.5-14.5)
[2022-03-07 18:35] LABS: ALANINE AMINOTRANSFERASE 27 U/L (0-55); ALBUMIN 4.1 gm/dL (3.4-4.8); ALKALINE PHOSPHATASE 90 U/L (40-150); ANION GAP 18 mmol/L (7-16); AST,SGOT 26 U/L (5-34); BILIRUBIN,TOTAL 0.4 mg/dL (0.2-1.2); BLOOD UREA NITROGEN 5 mg/dL (10-20); CALCIUM 8.9 mg/dL (8.4-10.2); CARBON DIOXIDE 20 mmol/L (23-31); CHLORIDE 102 mmol/L (98-107); CREATININE, serum 0.77 mg/dL (0.57-1.11); GLUCOSE 191 mg/dL (70-99); LIPASE 19 U/L (8-78); POTASSIUM 3.3 mmol/L (3.5-4.5); SODIUM 140 mmol/L (136-145); TOTAL PROTEIN 8.4 gm/dL (6.2-8.1)
[2022-03-07 18:42] LABS: TROPONIN-I < 0.010 ng/mL (0.00-0.033)
== END ==
LOC: COL.ER 17:45
PROVIDERS: Nurse Practitioner Family
DX: R07.89 Other chest pain (principal); E87.6 Hypokalemia; R73.9 Hyperglycemia, unspecified; Z95.5 Presence of coronary angioplasty implant and graft
CPT/HCPCS: J2405; J7030; Q9967

== ENCOUNTER 2022-05-06 19:24 | Emergency (ER) | payer MEDICARE, MEDICAID ==
[~2022-05-06] VITALS: Ht 157.5 cm; Wt 82.7 kg
[2022-05-06 19:24] VITALS: TEMP 98.3
[2022-05-06] MEDS ORDERED: ZITHROMAX 250M250 MG PO (21:51)
[2022-05-06 22:07] VITALS: BP 146/88; PULSE 70
== END 2022-05-06 22:07 | disposition home or self-care (01) ==
LOC: COL.ER 19:24
DX: J20.9 Acute bronchitis, unspecified (principal); Z88.2 Allergy status to sulfonamides; Z20.822 Contact with and (suspected) exposure to COVID-19
CPT/HCPCS: J1885; J8540

== ENCOUNTER 2022-06-19 20:41 | Emergency (ER) | payer MEDICARE, MEDICAID ==
[~2022-06-19] VITALS: Ht 152.4 cm; Wt 84.1 kg
[~2022-06-19 20:41] MED LIST changes: +ZITHROMAX 250M250 MG PO
[2022-06-19 20:45] VITALS: TEMP 97.9
[2022-06-19 21:33] LABS: BASO % 0.3 % (0.0-2.0); EOS # 0.2 K/mm3 (0.0-0.7); EOS % 2.7 % (0.0-4.0); GRAN # 4.2 K/mm3 (1.4-6.5); GRAN % 62.9 % (42.2-75.2); HEMATOCRIT 41.1 % (37.0-47.0); HEMOGLOBIN 13.6 g/dl (12.5-16.0); LYMPH # 1.7 K/mm3 (1.2-3.4); LYMPH % 25.9 % (20.0-51.0); MEAN CELL VOLUME 90 fl (80.0-100.0); MEAN CORPUSCULAR HEMOGLOBIN 30 pg (27-31); MEAN CORPUSCULAR HGB CONC 33 g/dl (33.0-37.0); MONO # 0.5 K/mm3 (0.1-0.6); MONO % 8.1 % (1.7-9.3); PLATELET COUNT 353 K/mm3 (130-400); RED BLOOD COUNT 4.57 M/mm3 (4.10-5.30); REDCELL DISTRIBUTION WIDTH-CV 13.2 % (11.5-14.5)
[2022-06-19 21:50] LABS: ANION GAP 12 mmol/L (7-16); BLOOD UREA NITROGEN 12 mg/dL (10-20); CALCIUM 9.5 mg/dL (8.4-10.2); CARBON DIOXIDE 25 mmol/L (23-31); CHLORIDE 101 mmol/L (98-107); CREATININE, serum 0.81 mg/dL (0.57-1.11); GLUCOSE 178 mg/dL (70-99); POTASSIUM 4.2 mmol/L (3.5-4.5); SODIUM 138 mmol/L (136-145)
[2022-06-19 21:59] LABS: TROPONIN-I < 0.010 ng/mL (0.00-0.033)
[2022-06-19] MEDS ORDERED: PREDNISONE20 MG PO (22:17)
[2022-06-19] MEDS ORDERED: ROBITUSSIN DM 105 ML PO (22:17)
[2022-06-19 22:44] VITALS: BP 130/75; PULSE 89
== END 2022-06-19 22:44 | disposition home or self-care (01) ==
LOC: COL.ER 20:41
PROVIDERS: Emergency Medicine
DX: J40 Bronchitis, not specified as acute or chronic (principal); Z86.69 Personal history of other diseases of the nervous system and sense organs; Z88.6 Allergy status to analgesic agent
CPT/HCPCS: J1885; J2930

== ENCOUNTER 2022-06-20 11:52 | Emergency (ER) | payer MEDICARE, MEDICAID ==
[~2022-06-20] VITALS: Ht 152.4 cm; Wt 84.1 kg
[~2022-06-20 11:52] MED LIST changes: +PREDNISONE20 MG PO; +ROBITUSSIN DM 105 ML PO
[2022-06-20 11:53] VITALS: TEMP 97.7
[2022-06-20 12:58] VITALS: BP 150/90; PULSE 88
== END 2022-06-20 12:58 | disposition home or self-care (01) ==
LOC: COL.ER 11:52
DX: R07.9 Chest pain, unspecified (principal); Z95.5 Presence of coronary angioplasty implant and graft

== ENCOUNTER 2022-07-18 08:03 | Outpatient (RCR) | payer MEDICARE, MEDICAID | END 2022-08-06 | LOC: MKS.ESL.PT | DX: M25.572 Pain in left ankle and joints of left foot (principal) ==